=== PATIENT | female | born 1960 | race Caucasian/White ===

== ENCOUNTER 2018-06-20 12:58 | Emergency (ER) | payer OTHER ==
[~2018-06-20] VITALS: Ht 170.2 cm; Wt 100.7 kg
[~2018-06-20 12:58] MED LIST: ASPIR 8181 MG; CARDIZEM30 MG; LOZOL2.5 MG; NOLVADEX10 MG; TAMOXIFEN CITRA20 MG; [UNRECOGNIZED DRUG - OTHER]
== END 2018-06-20 17:55 | disposition home or self-care (01) ==
LOC: ER 12:58
DX: J40 Bronchitis, not specified as acute or chronic (principal)